=== PATIENT | female | born 1950 | race Caucasian/White ===

== ENCOUNTER → 2018-05-20 | Outpatient (CLI) | payer BC ==
[~2018-05-20] MED LIST: CATHETER FLUSH 10 ML SYR IV PRN; REGADENOSON 0.4 MG/5 ML SYR (LEXISCAN) IV ONE
[2018-05-20 09:13] VITALS: BP 143/92
[2018-05-20 09:19] VITALS: BP 142/88
--- NOTE | 2018-05-21 13:33 | Cardiology Stress Test Report ---
Stress Test Report Type of NM Stress Test: Test Type: LEXISCAN 0.4MG/5ML Date of Procedure/Referring: Date of Procedure: May 20, 2018 PCP Sravani Morse MD Admitting Physician Ramon Mathis MD Indications: Preop cardiovascular risk assessment. Baseline Heart Rate: 67 Baseline Blood Pressure: Blood Pressure Systolic: 142 Blood Pressure Diastolic: 88 Baseline EKG: Baseline EKG: sinus rhythm Summary & Conclusion: Summary: The patient was brought to the stress lab after informed consent was taken. Stress test was performed according to the Lexiscan protocol. 0.4 mg of IV Lexiscan was given. Low-grade exercise was performed. Baseline EKG showed sinus rhythm at 67 BPM. Initial blood pressure was 143/92 mmHg. Maximum heart rate was 110 bpm and blood pressure 161/89 mmHg. Patient did not have any chest pain, arrhythmias or ST segment changes during the stress test. 10.87 mCi of Myoview were given for rest imaging and 30.4 mCi of Myoview given for stress imaging. Transient ischemic dilatation score 1.02, EF 82 percent. Normal wall motion. Normal myocardial perfusion imaging during rest and stress. Conclusion: Pharmacological stress test was negative for ischemia. Normal LV function with no wall motion abnormalities. Normal myocardial perfusion imaging during rest and stress. Sravani MORSE MD May 21, 2018 1:33 pm
== END ==
LOC: CARD 07:47
PROVIDERS: ATTEND Internal Medicine Interventional Cardiology
DX: Z01.810 Encounter for preprocedural cardiovascular examination (principal); I10 Essential (primary) hypertension; R07.9 Chest pain, unspecified; R94.31 Abnormal electrocardiogram [ECG] [EKG]; E66.9 Obesity, unspecified
CPT/HCPCS: 78452; 93017

== ENCOUNTER → 2019-08-18 | Outpatient (CLI) | payer BC ==
[~2019-08-18] MED LIST changes: -REGADENOSON 0.4 MG/5 ML SYR (LEXISCAN) IV ONE
--- NOTE | 2019-08-18 12:45 | Diagnostic Imaging Report ---
CLINICAL INDICATION: Patient with right upper quadrant pain and diarrhea. COMPARISON: None. PROCEDURE: The patient was administered 5.36 millicuries of technetium 99m Choletec. After 60 minutes of the images, one can of Ensure was drink followed by another 60 minutes of imaging. A nuclear medicine hepatobiliary scan with ejection fraction was performed. FINDINGS: There is prompt uptake and excretion of radiotracer by the liver. Activity is visible in the gallbladder by 20 minutes and the small bowel by 55 minutes. Ejection fraction of the gallbladder is calculated at 82% (normal >33%). The gallbladder visibly empties on the scans following the ingestion of Ensure. IMPRESSION: Elevated gallbladder ejection fraction of 82% which may be seen with gallbladder hyperkinesia. Otherwise, unremarkable hepatobiliary scan. There is no evidence of significant cystic duct or common duct obstruction. Dictated by: Dictated on workstation # [id number]
== END ==
LOC: CARD 09:11
PROVIDERS: ATTEND Surgery
DX: R10.11 Right upper quadrant pain (principal); R19.7 Diarrhea, unspecified
CPT/HCPCS: 78227